=== PATIENT | female | born 2000 | race Caucasian/White ===

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

== ENCOUNTER 2020-01-08 22:24 | Emergency (ER) | payer BC, OTHER ==
[2020-01-08] MEDS ORDERED: DIAZEPAM 5 MG TABLET ONE (22:54)
[2020-01-08] MEDS ORDERED: HYDROCODONE/APAP 10/325 TAB ONE (22:54)
[2020-01-09 00:17] LABS: Urine Glucose NEGATIVE (NEG); Urine Specific Gravity 1.025 (1.005-1.030)
[2020-01-09 00:18] LABS: Urine Blood 1+ (NEG); Urine Protein NEGATIVE (NEG)
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
[2020-01-09 09:22] VITALS: BP 106/79; TEMP 98; O2SAT 99
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
== END 2020-01-09 00:32 | disposition home or self-care (01) ==
LOC: ER 22:24
DX: S00.90XA Unspecified superficial injury of unspecified part of head, initial encounter (principal); S13.9XXA Sprain of joints and ligaments of unspecified parts of neck, initial encounter; V49.40XA Driver injured in collision with unspecified motor vehicles in traffic accident, initial encounter; Z91.010 Allergy to peanuts; Z91.011 Allergy to milk products; Z91.018 Allergy to other foods
CPT/HCPCS: 70450; 72125; 81003; 81025; 99284